=== PATIENT | male | born 1950 | race Caucasian/White ===

== ENCOUNTER 2016-09-14 00:06 | Emergency (ER) | payer OTHER, MEDICARE ==
[~2016-09-14 00:06] MED LIST: AMLODIPINE BESY10 M1 PO; ASPIRIN81 M4 PO; ATORVASTATIN CA40 M1 PO; FLEXERIL10 MG PO; LABETALOL HYDR300 MG PO; LISINOPRIL40 M1 PO; METFORMIN HCL500 M3 PO; METOPROLOL TART25 M1 PO; ULTRAM(MONOGRAP50 MG PO
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
[2016-09-14] MEDS ORDERED: OXYCODONE HCL5 M1 PO (01:48)
[2016-09-14 06:12] VITALS: BP 156/80
== END 2016-09-14 06:35 ==
LOC: ERH 00:06
DX: M54.5 Low back pain (principal)
CPT/HCPCS: 96372